=== PATIENT | female | born 1995 | race Caucasian/White ===

== ENCOUNTER 2017-08-23 18:01 | Emergency (ER) | payer BC ==
[~2017-08-23] VITALS: Ht 165.1 cm; Wt 76.7 kg
[2017-08-23 21:33] VITALS: BP 113/84
== END 2017-08-23 21:33 | disposition home or self-care (01) ==
LOC: ED 18:01
DX: N94.6 Dysmenorrhea, unspecified (principal)

== ENCOUNTER 2019-07-20 13:59 | Emergency (ER) | payer BC ==
[~2019-07-20] VITALS: Ht 165.1 cm; Wt 81.6 kg
[2019-07-20 14:07] VITALS: Ht 165.1 cm; Wt 81.6 kg
[2019-07-20 16:23] VITALS: BP 138/77
== END 2019-07-20 16:24 | disposition home or self-care (01) ==
LOC: ED 13:59
DX: M54.5 Low back pain (principal); G89.29 Other chronic pain
CPT/HCPCS: J3010